=== PATIENT | male | born 1965 | race Caucasian/White ===

== ENCOUNTER 2024-05-13 08:39 | Day surgery (SDC) | payer BC ==
[2024-05-13 09:44] VITALS: BMI 18.6
[2024-05-13 11:53] VITALS: TEMP 97.6
[2024-05-13 12:02] VITALS: BP 112/72; PULSE 72; RESP 19
== END 2024-05-13 12:05 | disposition home or self-care (01) ==
LOC: FASU-ENDO 08:39
PROVIDERS: ATTEND Internal Medicine Gastroenterology
PROC: 0DBL8ZX Excision of Transverse Colon, Via Natural or Artificial Opening Endoscopic, Diagnostic (ICD-10-PCS; principal; 2024-05-13 11:03)
DX: Z12.11 Encounter for screening for malignant neoplasm of colon (principal); D12.3 Benign neoplasm of transverse colon; K57.30 Diverticulosis of large intestine without perforation or abscess without bleeding
CPT/HCPCS: 88305-TC